=== PATIENT | male | born 1955 | race Caucasian/White ===

== ENCOUNTER 2019-03-18 09:39 | Day surgery (SDC) | payer OTHER ==
[~2019-03-18] VITALS: Ht 170.2 cm; Wt 86.6 kg
[~2019-03-18 09:39] MED LIST: ASPI81TA85 PO; ATOR80TA59 PO; BUDE180INH INH; D-10TAB3 PO; FISH1000 PO; LIDOCAINE 2% INJ 100 MG/5 ML SDV (FOR ANES.) As Ordered ONE; METF-839 PO; METO1TAB87 PO; NS 1,000 ML IV SCH; OMEP40CA2 PO; PROAAER10 INH; PROPOFOL 200 MG/20 ML VIAL As Ordered ONE; ROPI0.253 PO
[2019-03-18] MEDS ORDERED: ALBUTEROL SULFATE 2.5 MG/0.5 ML INH NEB SOLN As Ordered ONE (09:56)
[2019-03-18] MEDS ORDERED: ALBUTEROL SULFATE 2.5 MG/0.5 ML INH NEB SOLN INH ONE (10:00)
[2019-03-18] MEDS ORDERED: PROPOFOL 200 MG/20 ML VIAL As Ordered ONE (10:32)
--- NOTE | 2019-03-18 11:01 | ROOR ---
Patient Name: Jose Gaona Procedure Date: 03/18/2019 10:21 AM Date of : 1955 Age: 64 Room: [facility] Gender: Male Note Status: Finalized Procedure: Total Colonoscopy to Cecum + Cold Snare Polypectomy + Hemoclips Indications: Screening in patient at increased risk: Colorectal cancer in mother before age 60, High risk colon cancer surveillance: Personal history of colonic polyps Providers: Jorge Crowe MD Referring MD: [facility], Admin. Requesting Provider: Medicines: Monitored Anesthesia Care Complications: No immediate complications. Procedure: Pre-Anesthesia Assessment: - The heart rate, respiratory rate, oxygen saturations, blood pressure, adequacy of pulmonary ventilation, and response to care were monitored throughout the procedure. The Colonoscope was introduced through the anus and advanced to the cecum, identified by appendiceal orifice and ileocecal valve. The colonoscopy was performed without difficulty. The patient tolerated the procedure well. The quality of the bowel preparation was excellent. Findings: The perianal and digital rectal examinations were normal. Non-bleeding internal hemorrhoids were found during retroflexion. The hemorrhoids were small and Grade I (internal hemorrhoids that do not prolapse). Multiple sessile polyps were found at 40 cm proximal to the anus. The polyps were small in size. These polyps were removed with a cold snare. Resection and retrieval were complete. A small polyp was found in the hepatic flexure. The polyp was sessile. The polyp was removed with a cold snare. Resection and retrieval were complete. Multiple sessile polyps were found in the ascending colon. The polyps were small in size. These polyps were removed with a cold snare. Resection and retrieval were complete. To prevent bleeding after the polypectomy, two hemostatic clips were successfully placed (MR conditional). There was no bleeding at the end of the procedure. The exam was otherwise without abnormality. Impression: - Non-bleeding internal hemorrhoids. - Multiple small polyps at 40 cm proximal to the anus, removed with a cold snare. Resected and retrieved. - One small polyp at the hepatic flexure, removed with a cold snare. Resected and retrieved. - Multiple small polyps in the ascending colon, removed with a cold snare. Resected and retrieved. Clips (MR conditional) were placed. - The examination was otherwise normal. - The exam was otherwise normal to the cecum. Recommendation: - Patient has a contact number available for emergencies. The signs and symptoms of potential delayed complications were discussed with the patient. Return to normal activities tomorrow. Written discharge instructions were provided to the patient. - High fiber diet. - Discharge patient to home. - Continue present medications. - Await pathology results. - Repeat colonoscopy in 5 years for surveillance based on pathology results. - Return to referring physician. - Telephone GI clinic for pathology results in 1 week. - The findings and recommendations were discussed with the patient's family. Jorge Crowe MD Jorge Crowe MD 03/18/2019 11:01:18 AM Electronically signed by Jorge Crowe MD Number of Addenda: 0 Note Initiated On: 03/18/2019 10:21 AM Estimated Blood Loss: Estimated blood loss: none.
[2019-03-18 11:27] VITALS: BP 142/90
== END 2019-03-18 11:30 | disposition home or self-care (01) ==
LOC: M OPP 09:39
PROVIDERS: ATTEND Internal Medicine Gastroenterology
DX: Z86.010 Personal history of colon polyps (principal); Z80.0 Family history of malignant neoplasm of digestive organs; Z09 Encounter for follow-up examination after completed treatment for conditions other than malignant neoplasm; K64.0 First degree hemorrhoids; D12.3 Benign neoplasm of transverse colon; I25.2 Old myocardial infarction; Z79.82 Long term (current) use of aspirin; Z79.84 Long term (current) use of oral hypoglycemic drugs; Z79.899 Other long term (current) drug therapy; Z87.891 Personal history of nicotine dependence

== ENCOUNTER 2022-12-28 10:52 | Day surgery (SDC) | payer MEDICARE, OTHER ==
[~2022-12-28] VITALS: Ht 170.2 cm; Wt 81.0 kg
[~2022-12-28 10:52] MED LIST changes: +ALBU2.5V10 INH; +ALLO10TA PO; -ASPI81TA85 PO; +ASPI81TA86 PO; +BSS IRRIG/VANCO(10MG)/TOBRA(5MG)/EPINEPH(1:1000-0.5CC)500ML BAG-ORONLY IR ONE; +CEFUROXIME 1MG/0.1ML INTRACAMERAL INJ As Ordered ONE; +CYCLOPENTOLATE 1% OPHTH SOLN 2ML BTL OS SCH; +D 101000 PO; +ECOT81TA5 PO; +JARD1TAB3 PO; +LIDOCAINE 1% SDV 5ML VIAL As Ordered ONE; -LIDOCAINE 2% INJ 100 MG/5 ML SDV (FOR ANES.) As Ordered ONE; +LIDOCAINE 3.5 % 1ML OPHTH TOPICAL GEL OU ONE; -NS 1,000 ML IV SCH; +OFLOXACIN 0.3 % (OCUFLOX) OPTH SOL 5ML OS ONE; +OMEG10002 PO; -OMEP40CA2 PO; +OMEP40CA4 PO; +PHENYLEPHRINE 10% OPHTH SOL 5ML OS PRN; +PHENYLEPHRINE 2.5% OPHTH SOL 2ML OS SCH; -PROPOFOL 200 MG/20 ML VIAL As Ordered ONE; -ROPI0.253 PO; +ROPI5TAB19 PO; +TROPICAMIDE 1% OPHTH SOLN 15ML OS SCH; +XALA0.007 OU
[2022-12-28] MEDS ORDERED: fentaNYL 100 MCG/2 ML INJECTION As Ordered ONE (11:16)
[2022-12-28] MEDS ORDERED: MIDAZOLAM INJ 2MG/2ML VIAL As Ordered ONE (11:16)
[2022-12-28 13:32] VITALS: BP 167/88; TEMP 97.5; O2SAT 95
[2022-12-28] MEDS ORDERED: ACETYLCHOLINE OPHTH SOLN 1% 2ML (MIOCHOL-E) As Ordered ONE (13:32)
== END 2022-12-28 13:46 | disposition home or self-care (01) ==
LOC: M SDC 10:52
PROVIDERS: ATTEND Ophthalmology
DX: H25.12 Age-related nuclear cataract, left eye (principal); H40.812 Glaucoma with increased episcleral venous pressure, left eye; I10 Essential (primary) hypertension; E11.9 Type 2 diabetes mellitus without complications; E78.5 Hyperlipidemia, unspecified; K21.9 Gastro-esophageal reflux disease without esophagitis; I25.10 Atherosclerotic heart disease of native coronary artery without angina pectoris; I25.2 Old myocardial infarction; Z95.1 Presence of aortocoronary bypass graft; Z79.51 Long term (current) use of inhaled steroids; Z79.84 Long term (current) use of oral hypoglycemic drugs; Z79.01 Long term (current) use of anticoagulants; Z87.891 Personal history of nicotine dependence; J44.9 Chronic obstructive pulmonary disease, unspecified; M10.9 Gout, unspecified
CPT/HCPCS: 66183; 66987; C1783; J0697; J2250; J3010; V2632

== ENCOUNTER 2023-01-11 09:34 | Day surgery (SDC) | payer MEDICARE, OTHER ==
[~2023-01-11] VITALS: Ht 170.2 cm; Wt 84.4 kg
[~2023-01-11 09:34] MED LIST changes: +CYCLOPENTOLATE 1% OPHTH SOLN 2ML BTL OD SCH; -CYCLOPENTOLATE 1% OPHTH SOLN 2ML BTL OS SCH; +OFLOXACIN 0.3 % (OCUFLOX) OPTH SOL 5ML OD ONE; -OFLOXACIN 0.3 % (OCUFLOX) OPTH SOL 5ML OS ONE; +PHENYLEPHRINE 10% OPHTH SOL 5ML OD PRN; -PHENYLEPHRINE 10% OPHTH SOL 5ML OS PRN; +PHENYLEPHRINE 2.5% OPHTH SOL 2ML OD SCH; -PHENYLEPHRINE 2.5% OPHTH SOL 2ML OS SCH; +TROPICAMIDE 1% OPHTH SOLN 15ML OD SCH; -TROPICAMIDE 1% OPHTH SOLN 15ML OS SCH
[2023-01-11] MEDS ORDERED: MIDAZOLAM INJ 2MG/2ML VIAL As Ordered ONE (11:39)
[2023-01-11] MEDS ORDERED: fentaNYL 100 MCG/2 ML INJECTION As Ordered ONE (11:39)
[2023-01-11 13:03] VITALS: BP 176/97; TEMP 96.8; O2SAT 90
== END 2023-01-11 13:13 | disposition home or self-care (01) ==
LOC: M SDC 09:34
PROVIDERS: ATTEND Ophthalmology
DX: H25.11 Age-related nuclear cataract, right eye (principal); H40.811 Glaucoma with increased episcleral venous pressure, right eye; I10 Essential (primary) hypertension; M10.9 Gout, unspecified; E78.5 Hyperlipidemia, unspecified; E11.9 Type 2 diabetes mellitus without complications; F12.10 Cannabis abuse, uncomplicated; Z87.891 Personal history of nicotine dependence; Z79.51 Long term (current) use of inhaled steroids; Z79.899 Other long term (current) drug therapy; Z79.82 Long term (current) use of aspirin; Z95.1 Presence of aortocoronary bypass graft; Z79.84 Long term (current) use of oral hypoglycemic drugs; K21.9 Gastro-esophageal reflux disease without esophagitis; I25.2 Old myocardial infarction; I25.10 Atherosclerotic heart disease of native coronary artery without angina pectoris
CPT/HCPCS: 66183; 66987; C1783; J0697; J2250; J3010; V2788

== ENCOUNTER 2024-03-04 08:22 | Day surgery (SDC) | payer MEDICARE, OTHER ==
[~2024-03-04] VITALS: Ht 175.3 cm; Wt 73.7 kg
[~2024-03-04 08:22] MED LIST changes: -BSS IRRIG/VANCO(10MG)/TOBRA(5MG)/EPINEPH(1:1000-0.5CC)500ML BAG-ORONLY IR ONE; -CEFUROXIME 1MG/0.1ML INTRACAMERAL INJ As Ordered ONE; -CYCLOPENTOLATE 1% OPHTH SOLN 2ML BTL OD SCH; -LIDOCAINE 1% SDV 5ML VIAL As Ordered ONE; -LIDOCAINE 3.5 % 1ML OPHTH TOPICAL GEL OU ONE; -OFLOXACIN 0.3 % (OCUFLOX) OPTH SOL 5ML OD ONE; -PHENYLEPHRINE 10% OPHTH SOL 5ML OD PRN; -PHENYLEPHRINE 2.5% OPHTH SOL 2ML OD SCH; -TROPICAMIDE 1% OPHTH SOLN 15ML OD SCH
[2024-03-04] MEDS: NS 1,000 ML IV ONE (08:38)
[2024-03-04] MEDS ORDERED: fentaNYL 100 MCG/2 ML INJECTION As Ordered ONE (09:11)
[2024-03-04] MEDS ORDERED: propofoL 200 MG/20 ML VIAL As Ordered ONE (09:11)
[2024-03-04 10:17] VITALS: TEMP 97.1
[2024-03-04 10:35] VITALS: BP 122/71; O2SAT 94
== END 2024-03-04 10:45 | disposition home or self-care (01) ==
LOC: M OPP 08:22
PROVIDERS: ATTEND Internal Medicine Gastroenterology
DX: Z12.11 Encounter for screening for malignant neoplasm of colon (principal); Z86.010 Personal history of colon polyps; Z80.0 Family history of malignant neoplasm of digestive organs; D12.3 Benign neoplasm of transverse colon; K64.0 First degree hemorrhoids; K57.30 Diverticulosis of large intestine without perforation or abscess without bleeding; K22.89 Other specified disease of esophagus; K44.9 Diaphragmatic hernia without obstruction or gangrene; R12 Heartburn; E11.9 Type 2 diabetes mellitus without complications; I25.119 Atherosclerotic heart disease of native coronary artery with unspecified angina pectoris; Z86.74 Personal history of sudden cardiac arrest; Z87.891 Personal history of nicotine dependence; Z79.02 Long term (current) use of antithrombotics/antiplatelets; Z79.51 Long term (current) use of inhaled steroids; Z79.82 Long term (current) use of aspirin; Z79.84 Long term (current) use of oral hypoglycemic drugs; Z79.899 Other long term (current) drug therapy
CPT/HCPCS: 43239; 45385; 88305; J3010